=== PATIENT | female | born 2000 | race African-American/Black ===

== ENCOUNTER 2022-06-18 07:13 | Emergency (ER) | payer OTHER ==
[2022-06-18 07:28] VITALS: BP 105/64
[2022-06-18 07:52] LABS: RAPID STREP SCREEN POSITIVE (Negative)
[2022-06-18] MEDS ORDERED: HYDROcod/ACETAM 5/325 MG TABLET PO STA (07:57)
[2022-06-18] MEDS ORDERED: AMOX/CLAV 875 MG/125 MG TABLET PO STA (07:57)
[2022-06-18] MEDS ORDERED: predniSONE 20 MG TABLET PO STA (07:57)
--- NOTE | 2022-06-18 08:00 | ED Physician Documentation ---
PD HPI HEENT - Stated complaint Stated Complaint: THROAT PX - Chief complaint Chief Complaint: Heent - History obtained from History obtained from: Patient - Additional information Additional information: Previously healthy 21-year-old woman has had sore throat especially on the right for the last week. No fevers or chills. No runny nose or cough. No possibility of . Review of Systems Constitutional: denies: Fever, Chills Nose: denies: Rhinorrhea / runny nose Throat: reports: Sore throat PD PAST MEDICAL HISTORY - Past Medical History Past Medical History: No Cardiovascular: None Respiratory: None Neuro: None Endocrine/Autoimmune: None GI: None ETIOLOGIST: None : None HEENT: None Psych: None Musculoskeletal: None Derm: None - Past Surgical History Past Surgical History: No - Present Medications Home Medications: Ambulatory Orders Medication Instructions Recorded Confirmed Amox/Clav 875/125 [Augmentin] 1 each PO Q12H #20 tablet 06/18/22 HYDROcod/ACETAM 5/325 [Marissa 5/325] 1 - 2 tab PO Q6H PRN #15 tablet 06/18/22 predniSONE [Deltasone] 20 mg PO [id number] #21 tab 06/18/22 - Allergies Allergies/Adverse Reactions: Allergies Allergy/AdvReac Type Severity Reaction Status Date / Time No Known Drug Allergies Allergy Verified 06/18/22 07:24 - Social History Does the pt smoke?: No Smoking Status: Never smoker - Immunizations Immunizations are current?: Yes PD ED PE NORMAL - Vitals Vital signs reviewed: Yes - General General: Alert and oriented X 3, No acute distress - HEENT HEENT: Other (She has right tonsillar swelling with deviation of the uvula to t he left and hot potato voice. This is consistent with a peritonsillar abscess but I do not see a "head" to drain.) - Neck Neck: Supple, no meningeal sign, No bony TTP - Neuro Neuro: Alert and oriented X 3, Normal speech Results - Vitals Vitals: Vital Signs - 24 hr 06/18/22 07:24 Temperature 36.8 C Heart Rate 82 Respiratory 16 Rate Blood Pressure 105/64 O2 Saturation 100 Oxygen O2 Source Room air - Labs Labs: Laboratory Tests 06/18/22 07:30 Group A Strep Rapid POSITIVE H PD Medical Decision Making - ED course ED course: 21-year-old with an early peritonsillar abscess on the right. Does not look like it needs I&D right now and her airway is fine. She was treated with Augmentin, hydrocodone, and prednisone. I spoke with Dr. Dioni Grayson who will see her in follow-up. Departure - Departure Disposition: 01 Home, Self Care Clinical Impression: Peritonsillar abscess Condition: Good Record reviewed to determine appropriate education?: Yes Instructions: ED Peritonsillar Infec Abx No I andD Prescriptions: Amox/Clav 875/125 [Augmentin] 1 each PO Q12H #20 tablet predniSONE [Deltasone] 20 mg PO [id number] #21 tab HYDROcod/ACETAM 5/325 [Marissa 5/325] 1 - 2 tab PO Q6H PRN #15 tablet PRN Reason: Pain Comments: You were seen today for right-sided peritonsillar abscess, this is a collection of fluid behind the tonsil related to an infection. To me it does not look like this needs drainage at this point, but this may develop to needing drainage. I did to speak with a local specialist who is listed on this form, his office is in [place]. He wants to see you on for recheck. Return sooner if worse. Call his office today for an appointment. I sent your prescriptions electronically to [facility] in [place] I am prescribing a short course of narcotic pain medication for you. These are potentially dangerous and addictive medications that should be used carefully. These medications may constipate you. Take an [id number] stool softener (docusate) twice daily with plenty of water while taking these medications. If you go 24 hours without a bowel movement, take [id number] miralax, per package instructions. Do not drink or drive while taking these medications. If you received narcotic or sedating medications while in the emergency department, do not drive for 24 hours. Store this medication in a safe, secure place and out of reach of children. It is a violation of federal law to give or sell this medication to another person or to use in a manner other than prescribed. The ED will not refill narcotic prescriptions, including prescriptions lost or stolen. To dispose of unwanted medications: 1. [facility] [address] in [place] has a medication drop box. They accept prescription medications (in pill form) Friday through Friday 9:00 a.m. to 5:00 p.m. 2. [facility] [employer] [facility] accepts prescription medications (in pill form only) for disposal year round. Call for more information. 3. Contact the [facility] for the next [facility] sponsored prescription drug collection event. , [phone], or [phone]; Note that many narcotic pain relievers also contain Tylenol/acetaminophen. Please ensure that your total dose of acetaminophen from all sources does not exceed 3 g (3000 mg) per day. Forms: Activity restrictions
== END 2022-06-18 08:27 | disposition home or self-care (01) ==
LOC: ED 07:13
DX: J36 Peritonsillar abscess (principal)
CPT/HCPCS: 87430; 99282; 99283; A9270; J7512